=== PATIENT | male | born 1950 | race Caucasian/White ===

== ENCOUNTER → 2017-10-09 | Outpatient (CLI) | payer BC ==
[~2017-10-09] MED LIST: ASPI325; ASPI81EC PO; AZIT250 PO; BP MED; CLOP75; CRUTCH3 USE; HYDACE10B PO; HYDACE5 PO; HYDPAM50 PO; META800 PO; METO50; METO50ER PO; NAPR375; NAPR500 PO; NEOPOLHCSU OT; OSTEO BIFLEX; OXYACE5T PO; PRED20 PO; ROSU10TA PO; SILD50TA PO; SULTRIDS PO; TESTOSTERONE INJ; VALS80; VALS80 PO; VITS
== END ==
LOC: LAB 09:45
DX: E11.9 Type 2 diabetes mellitus without complications (principal)
CPT/HCPCS: 82043

== ENCOUNTER → 2018-10-31 | Outpatient (CLI) | payer OTHER ==
[2018-10-31 15:01] LABS: BASOPHILS ABSOLUTE AUTO 0.04 K/mm3 (0.00-0.23); BASOPHILS PERCENT AUTO 0 % (0-2); EOSINOPHILS ABSOLUTE AUTO 0.01 K/mm3 (0.00-0.68); EOSINOPHILS PERCENT AUTO 0 % (0-6); Hematocrit 51.3 % (37.0-53.0); Hemoglobin 17.3 g/dL (13.5-17.5); IMMATURE GRAN PERCENT AUTO 1 % (0-1); LYMPHOCYTES ABSOLUTE AUTO 2.13 K/mm3 (0.84-5.20); LYMPHOCYTES PERCENT AUTO 11 % (21-46); MONOCYTES PERCENT AUTO 9 % (4-13); Mean Corpuscular HGB 30.7 pg (26.0-34.0); Mean Corpuscular HGB Conc 33.7 g/dL (31.5-36.5); Mean Corpuscular Volume 91 fL (80-100); Mean Platelet Volume 10.7 fL (9.1-12.4); NEUTROPHILS PERCENT AUTO 79 % (41-73); Platelet Count 158 K/mm3 (150-400); RDW Coefficient Variation 13.3 % (11.7-14.2); RDW Standard Deviation 44.9 fL (35.1-46.3); Red Blood Cell Count 5.63 M/mm3 (4.30-5.90); White Blood Cell Count 20.18 K/mm3 (4.00-11.30)
[2018-10-31 15:11] LABS: Alanine Aminotransfer (ALT/SGP 31 U/L (12-78); Albumin/Globulin Ratio 0.9 (0.8-1.8); Alk Phos 57 U/L (50-136); Anion Gap 7 mmol/L (6-16); Aspartate Aminotrans (AST/SGOT 7 U/L (12-37); Bilirubin, Total 1.5 mg/dL (0.1-1.0); Blood Urea Nitrogen 13 mg/dL (8-24); Bun/Creatinine Ratio 11.9 (12.0-20.0); CO2, Blood 28 mmol/L (21-32); Calcium, Blood 9.4 mg/dL (8.5-10.1); Chloride, Blood 100 mmol/L (98-108); Creatinine, Blood 1.09 mg/dL (0.60-1.20); Globulin, Blood 4.4 g/dL (2.2-4.0); Glomerular Filtration Rate >60 (60-); Glucose, Blood 111 mg/dL (70-99); Potassium, Blood 4.2 mmol/L (3.5-5.5); Sodium, Blood 135 mmol/L (136-145); Total Protein, Blood 8.4 g/dL (6.4-8.2)
== END ==
LOC: LAB 14:07 → LAB SHORT 14:07
PROVIDERS: Nurse Practitioner
DX: R06.02 Shortness of breath (principal)
CPT/HCPCS: 80053; 85025; 85379

== ENCOUNTER → 2022-05-12 | Outpatient (CLI) | payer OTHER | END | disposition home or self-care (01) | LOC: LAB SHORT 13:40 → LAB 13:40 | DX: L08.9 Local infection of the skin and subcutaneous tissue, unspecified (principal) | CPT/HCPCS: 87077; 87086; 87186 ==

== ENCOUNTER 2022-06-26 05:39 | Inpatient (IN) | payer OTHER ==
[~2022-06-26] VITALS: Ht 165.1 cm; Wt 110.5 kg
[2022-06-26] MEDS ORDERED: LOSA25 PO (06:05)
[2022-06-26] MEDS ORDERED: CARVEDILOL12.5 MG PO (06:05)
[2022-06-26] MEDS ORDERED: POT CHLORIDE (06:05)
[2022-06-26] MEDS ORDERED: FUROSEMIDE40 MG PO (06:05)
[2022-06-26 06:06] LABS: BASOPHILS ABSOLUTE AUTO 0.03 K/mm3 (0.00-0.23); BASOPHILS PERCENT AUTO 1 % (0-2); EOSINOPHILS ABSOLUTE AUTO 0.12 K/mm3 (0.00-0.68); EOSINOPHILS PERCENT AUTO 2 % (0-6); Hematocrit 45.5 % (37.0-53.0); Hemoglobin 15.9 g/dL (13.5-17.5); IMMATURE GRAN ABSOLUTE AUTO 0.02 K/mm3 (0.00-0.10); IMMATURE GRAN PERCENT AUTO 0 % (0-1); LYMPHOCYTES ABSOLUTE AUTO 1.51 K/mm3 (0.84-5.20); LYMPHOCYTES PERCENT AUTO 23 % (21-46); MONOCYTES ABSOLUTE AUTO 0.58 K/mm3 (0.16-1.47); MONOCYTES PERCENT AUTO 9 % (4-13); Mean Corpuscular HGB 30.2 pg (26.0-34.0); Mean Corpuscular HGB Conc 34.9 g/dL (31.5-36.5); Mean Corpuscular Volume 87 fL (80-100); Mean Platelet Volume 10.3 fL (9.1-12.4); NEUTROPHILS ABSOLUTE AUTO 4.32 K/mm3 (1.96-9.15); NEUTROPHILS PERCENT AUTO 66 % (41-73); Platelet Count 163 K/mm3 (150-400); RDW Coefficient Variation 12.5 % (11.7-14.2); RDW Standard Deviation 39.6 fL (35.1-46.3); Red Blood Cell Count 5.26 M/mm3 (4.30-5.90); White Blood Cell Count 6.58 K/mm3 (4.00-11.30)
[2022-06-26] MEDS ORDERED: METF500 PO (06:06)
[2022-06-26] MEDS ORDERED: TRAM50 PO (06:06)
[2022-06-26 06:32] LABS: Albumin/Globulin Ratio 1.1 (0.8-1.8); Bilirubin, Total 0.5 mg/dL (0.1-1.0); Bun/Creatinine Ratio 23.6 (12.0-20.0); Calcium, Blood 9.8 mg/dL (8.5-10.1); Creatinine, Blood 0.85 mg/dL (0.60-1.20); Globulin, Blood 3.6 g/dL (2.2-4.0); Potassium, Blood 4.6 mmol/L (3.5-5.5); Total Protein, Blood 7.6 g/dL (6.4-8.2)
[2022-06-26 07:52] LABS: Anti-Xa UFH, PHA Monitoring <0.10 IU/mL; International Normalized Ratio 0.98; Prothrombin Time Results 10.3 Sec (9.7-11.5)
--- NOTE | 2022-06-26 13:25 | NUR ---
1300 PATIENT ARRIVED FROM THE [facility] POST INTERVENTION VIA RIGHT RADIAL. PATIENT IN A RECLINER AND PLACED ON THE MONITOR. TR BAND IN PLACE TO THE RIGHT WRIST WITH 11 ML OF AIR IN PLACE FROM 1251. NO BLEEDING NOTED. NO TINGLING. PLETH GOOD WAVEFORM WITH SAT 97%. FAMILY AT THE BESIDE AFTER SPEAKING WITH DR. AYALA. PATIENT IS SLIGHTLY SOB BUT HE IS AN AORTIC VALVE PATIENT ALSO. NO CHEST PAIN NOTED FROM THE PATIENT. SBAR RECEIVED FROM TODD ROSE. PATIENT IS WAITING FOR BED PCU #[id number] TO BE CLEANED, HOLDING HERE IN [facility] TILL READY. DRINKING JUICE AND VISITING WITH FAMILY. CALL LIGHT IN REACH.
--- NOTE | 2022-06-26 13:51 | NUR ---
3550 PATIENT COMPLAINED OF HEADACHE AND RN OBTAINED ORDER FOR TYLENOL AND 650 MG PO TYLENOL GIVEN. FAMILY REMAINS AT THE BEDSIDE.
--- NOTE | 2022-06-26 14:01 | NUR ---
PATINET UP TO THE RESTRROM. SBAR GIVEN TO TODD LOPEZ IN PCU, AWAITING FOR ROOM TO BE CLEANED.
[2022-06-26] MEDS ORDERED: ATOR40TA PO (14:49)
[2022-06-26] MEDS ORDERED: GLIP10 PO (14:50)
[2022-06-26] MEDS ORDERED: KLOR-CON M1010 MEQ PO (14:52)
--- NOTE | 2022-06-26 19:15 | NUR ---
ASSUMED CARE BEDSIDE REPORT RECEIVED. RIGHT RADIAL ACCESS SITE REVIEWED WITH OFFGOING RN. PT DENIES CP/PRESSURE, DENIES SOB/DYSPNEA, DENIES NEEDS AT THIS TIME. CALL LIGHT IN REACH.
--- NOTE | 2022-06-27 01:39 | NUR ---
SOB ON ARRIVAL TO ROOM FOR ROUNDS, PT APPEARS UNCOMFORTABLE, NOTED SITTING ON EDGE OF BED INTERMITTENTLY TAKES DEEPER BREATHS. HE ADMITS TO EPISODES OF FEELING SHORT OF BREATH THAT LAST "5 OR 6 SECONDS." "LIKE I JUST CAN'T CATCH MY BREATH" HE DENIES CP/PRESSURE, STATES THAT CPAP USE IMPROVES FEELING OF SHORTNESS OF BREATH. HE DOES STATE THAT HE HAS THESE EPISODES AT HOME WELL. PT DENIES SIMILARITIES WITH CARDIAC PAIN/DISCOMFORT. CONTINUES IN SINUS RHYTHM WITH RATE MID 60S, SATS MAINTAINING, LUNG SOUNDS CLEAR WITH DIM BASES BILAT, RESP RATE 20-22. PT DENIES NEED FOR INTERVENTION AT THIS TIME. WILL CONT TO MONITOR AND OBTAIN EKG IF SHORTNESS OF BREATH PERSISTS.
--- NOTE | 2022-06-27 02:01 | NUR ---
SHORTNESS OF BREATH PT STATES THAT HE IS FEELING BETTER AT THIS TIME, HE IS GOING TO ATTEMPT TO SLEEP. WILL MONITOR.
--- NOTE | 2022-06-27 05:39 | NUR ---
PT REMAINS ALERT AND ORIENTED THROUGHOUT NOC, CONTINUES TO DENY CHEST PAIN, DID ADMIT TO SOME SHORTNESS OF BREATH EARLY THIS AM, SEE NN FOR ONSET AND RESOLUTION TIMES. HE IS UP TO BATHROOM AND CHAIR IN ROOM WITH STEADY GAIT AND SBA FOR LINE MANAGEMENT. GOOD COMPLIANCE WITH RIGHT RADIAL ACCESS MOVEMENT RESTRICTIONS HAS BEEN NOTED THROUGHOUT NOC. CONTINUES IN SINUS RHYTHM, OCCASIONAL PVCS HAVE BEEN NOTED, PRESSURES MAINTAIN. LUNGS REMAIN CLEAR THROUGHOUT, SATS MAINTAIN ON ROOM AIR WHEN AWAKE, RT DID SET UP CPAP WITH 2 L/MIN BLEED IN. RIGHT RADIAL ACCESS SITE CONTINUES WNL, NO BLEEDING OR BRUISING NOTED. WILL CONT TO MONITOR AND REPORT TO ONCOMING SHIFT.
[2022-06-27 05:50] LABS: BASOPHILS ABSOLUTE AUTO 0.05 K/mm3 (0.00-0.23); BASOPHILS PERCENT AUTO 1 % (0-2); EOSINOPHILS ABSOLUTE AUTO 0.15 K/mm3 (0.00-0.68); EOSINOPHILS PERCENT AUTO 2 % (0-6); Hematocrit 46.3 % (37.0-53.0); IMMATURE GRAN ABSOLUTE AUTO 0.03 K/mm3 (0.00-0.10); IMMATURE GRAN PERCENT AUTO 0 % (0-1); LYMPHOCYTES ABSOLUTE AUTO 1.58 K/mm3 (0.84-5.20); LYMPHOCYTES PERCENT AUTO 19 % (21-46); MONOCYTES ABSOLUTE AUTO 0.66 K/mm3 (0.16-1.47); MONOCYTES PERCENT AUTO 8 % (4-13); Mean Corpuscular HGB 30.2 pg (26.0-34.0); Mean Corpuscular HGB Conc 34.6 g/dL (31.5-36.5); Mean Corpuscular Volume 87 fL (80-100); Mean Platelet Volume 10.3 fL (9.1-12.4); NEUTROPHILS ABSOLUTE AUTO 6.08 K/mm3 (1.96-9.15); NEUTROPHILS PERCENT AUTO 71 % (41-73); Platelet Count 177 K/mm3 (150-400); RDW Coefficient Variation 12.9 % (11.7-14.2); RDW Standard Deviation 40.8 fL (35.1-46.3); White Blood Cell Count 8.55 K/mm3 (4.00-11.30)
[2022-06-27 06:16] LABS: Anion Gap 5 mmol/L (6-16); Blood Urea Nitrogen 18 mg/dL (8-24); CHOL/HDL RATIO 3.8; CO2, Blood 28 mmol/L (21-32); Calcium, Blood 9.6 mg/dL (8.5-10.1); Chloride, Blood 105 mmol/L (98-108); Cholesterol 130 mg/dL (50-200); Creatinine, Blood 0.82 mg/dL (0.60-1.20); Glomerular Filtration Rate 94 (60-); Glucose, Blood 174 mg/dL (70-99); HDL Cholesterol 34 mg/dL (>39); LDL/HDL RATIO 0.9; Low Density Lipoprotein Chol 31 mg/dL (0-110); Potassium, Blood 4.5 mmol/L (3.5-5.5); Sodium, Blood 138 mmol/L (136-145); Triglycerides 326 mg/dL (30-160); Very Low Density Lipoprot Chol 65 mg/dL (6-32)
[2022-06-27] MEDS ORDERED: ASPI81CH PO (09:25)
[2022-06-27] MEDS ORDERED: TICA90TA PO (09:25)
--- NOTE | 2022-06-27 11:01 | NUR ---
DISCHARGE SUMMARY PT WAS TRANSPORTED BY WHEELCHAIR TO PERSONAL VEHICLE. ALL PERSONAL BELONGINGS AND DISCHARGE INSTRUCTIONS WERE IN THE PT'S POSSESSION AT THE TIME OF DISCHARGE. ALL QUESTIONS AND CONCERNS WERE ADDRESSED PRIOR TO DISCHARGE AND PT STATED AN UNDERSTANDING OF DISCHARGE INSTRUCTIONS.
== END 2022-06-27 10:53 | disposition home or self-care (01) | DRG 246 ==
LOC: ER 05:39 → ERHOLD 08:14 → PCU 08:14
PROVIDERS: Student in an Organized Health Care Education/Training Program; ADMIT Student in an Organized Health Care Education/Training Program
PROC: 4A023N7 Measurement of Cardiac Sampling and Pressure, Left Heart, Percutaneous Approach (ICD-10-PCS; principal; 2022-06-26)
PROC: 027034Z Dilation of Coronary Artery, One Artery with Drug-eluting Intraluminal Device, Percutaneous Approach (ICD-10-PCS; 2022-06-26)
PROC: B2111ZZ Fluoroscopy of Multiple Coronary Arteries using Low Osmolar Contrast (ICD-10-PCS; 2022-06-26)
PROC: B240ZZ3 Ultrasonography of Single Coronary Artery, Intravascular (ICD-10-PCS; 2022-06-26)
DX: T82.855A Stenosis of coronary artery stent, initial encounter (principal); I21.A9 Other myocardial infarction type; Z68.41 Body mass index [BMI] 40.0-44.9, adult; I25.10 Atherosclerotic heart disease of native coronary artery without angina pectoris; Z88.0 Allergy status to penicillin; Z79.899 Other long term (current) drug therapy; E66.9 Obesity, unspecified; G47.33 Obstructive sleep apnea (adult) (pediatric); I12.9 Hypertensive chronic kidney disease with stage 1 through stage 4 chronic kidney disease, or unspecified chronic kidney disease; E11.22 Type 2 diabetes mellitus with diabetic chronic kidney disease; N18.9 Chronic kidney disease, unspecified; E78.5 Hyperlipidemia, unspecified; Z79.84 Long term (current) use of oral hypoglycemic drugs; E11.65 Type 2 diabetes mellitus with hyperglycemia; Z28.29 Immunization not carried out because of patient decision for other reason
CPT/HCPCS: 36415; 71045; 76937; 80048; 80053; 80061; 82947; 83690; 83735; 83880; 84443; 84484; 85025; 85347; 85520; 85610; 92978; 93005; 93010; 93454; 94660; 94762; 99152; 99153; A9270; C1725; C1753; C1769; C1874; C1887; C1894; C8929; C9600; J1644; J2250; J3010; J7030; J7050; Q9957; Q9967

== ENCOUNTER → 2022-07-19 | Outpatient (CLI) | payer OTHER ==
[~2022-07-19] MED LIST changes: +ASPI81CH PO; +ATOR40TA PO; +CARVEDILOL12.5 MG PO; +FUROSEMIDE40 MG PO; +GLIP10 PO; +KLOR-CON M1010 MEQ PO; +LOSA25 PO; +METF500 PO; +POT CHLORIDE; +TICA90TA PO; +TRAM50 PO
[2022-07-19 11:32] LABS: Source, Urine Clean Catch
[2022-07-19 18:56] LABS: Appearance, Urine Clear (Clear); Bilirubin, Urine Neg (Neg); Blood, Urine Neg (Neg); Color, Urine Yellow (P-Yellow); Glucose Qualitative, Urine Neg (Neg); Ketones, Urine Neg (Neg); Leukocyte Esterase, Urine Neg (Neg); Nitrite, Urine Pos (Neg); Protein, Urine 1+ (Neg); Urobilinogen, Urine NORM (Normal); pH, Urine 6.5 (5.0-8.0)
[2022-07-19 19:04] LABS: Bacteria Many /hpf; Red Blood Cells, Urine 0-2 /hpf (0-2); Squamous Epithelial Cells Few /hpf (Few)
== END | disposition home or self-care (01) ==
LOC: LAB SHORT 10:14 → LAB 10:14
PROVIDERS: Registered Nurse
DX: R30.0 Dysuria (principal)
CPT/HCPCS: 81001; 87077; 87086; 87186

== ENCOUNTER → 2024-01-09 | Outpatient (CLI) | payer OTHER ==
[2024-01-09 12:20] LABS: Alanine Aminotransfer (ALT/SGP 58 U/L (12-78); Albumin, Blood 3.6 g/dL (3.4-5.0); Alk Phos 56 U/L (40-126); Anion Gap 11 mmol/L (6-16); Aspartate Aminotrans (AST/SGOT 26 U/L (12-37); Bilirubin, Total 0.7 mg/dL (0.1-1.0); Blood Urea Nitrogen 13 mg/dL (8-24); Bun/Creatinine Ratio 10.9 (12.0-20.0); CHOL/HDL RATIO 2.8; CO2, Blood 28 mmol/L (21-32); Calcium, Blood 9.1 mg/dL (8.5-10.1); Chloride, Blood 101 mmol/L (98-108); Cholesterol 92 mg/dL (50-200); Creatinine, Blood 1.19 mg/dL (0.60-1.20); Globulin, Blood 3.7 g/dL (2.2-4.0); Glomerular Filtration Rate 65 (60-); Glucose, Blood 99 mg/dL (70-99); HDL Cholesterol 33 mg/dL (>39); LDL/HDL RATIO 1.2; Low Density Lipoprotein Chol 38 mg/dL (<110); Potassium, Blood 4.4 mmol/L (3.5-5.5); Sodium, Blood 136 mmol/L (136-145); Total Protein, Blood 7.3 g/dL (6.4-8.2); Triglycerides 104 mg/dL (30-160); Very Low Density Lipoprot Chol 20 mg/dL (6-32)
[2024-01-09 12:23] LABS: BASOPHILS ABSOLUTE AUTO 0.05 K/mm3 (0.00-0.23); BASOPHILS PERCENT AUTO 1 % (0-2); EOSINOPHILS PERCENT AUTO 3 % (0-6); Hematocrit 50.7 % (37.0-53.0); Hemoglobin 17.1 g/dL (13.5-17.5); IMMATURE GRAN ABSOLUTE AUTO 0.02 K/mm3 (0.00-0.10); IMMATURE GRAN PERCENT AUTO 0 % (0-1); LYMPHOCYTES ABSOLUTE AUTO 1.86 K/mm3 (0.84-5.20); LYMPHOCYTES PERCENT AUTO 26 % (21-46); MONOCYTES ABSOLUTE AUTO 0.65 K/mm3 (0.16-1.47); MONOCYTES PERCENT AUTO 9 % (4-13); Mean Corpuscular HGB 29.8 pg (26.0-34.0); Mean Corpuscular HGB Conc 33.7 g/dL (31.5-36.5); Mean Corpuscular Volume 88 fL (80-100); Mean Platelet Volume 10.5 fL (9.1-12.4); NEUTROPHILS ABSOLUTE AUTO 4.44 K/mm3 (1.96-9.15); NEUTROPHILS PERCENT AUTO 61 % (41-73); Platelet Count 145 K/mm3 (150-400); RDW Coefficient Variation 12.9 % (11.7-14.2); RDW Standard Deviation 41.6 fL (35.1-46.3); Red Blood Cell Count 5.74 M/mm3 (4.30-5.90); White Blood Cell Count 7.22 K/mm3 (4.00-11.30)
== END ==
LOC: LAB SHORT 11:12 → LAB 11:12
PROVIDERS: Registered Nurse
DX: E11.51 Type 2 diabetes mellitus with diabetic peripheral angiopathy without gangrene (principal); E11.21 Type 2 diabetes mellitus with diabetic nephropathy; E11.65 Type 2 diabetes mellitus with hyperglycemia; E29.1 Testicular hypofunction; I12.9 Hypertensive chronic kidney disease with stage 1 through stage 4 chronic kidney disease, or unspecified chronic kidney disease; E11.22 Type 2 diabetes mellitus with diabetic chronic kidney disease; N18.31 Chronic kidney disease, stage 3a; I25.10 Atherosclerotic heart disease of native coronary artery without angina pectoris
CPT/HCPCS: 36415; 80053; 80061; 83036; 84403; 85025

== ENCOUNTER → 2024-04-20 | Outpatient (CLI) | payer OTHER ==
[2024-04-24 15:24] LABS: TESTOSTERONE, FREE BY DIALYSIS 123.4 pg/mL (47.0-244.0); TESTOSTERONE, TOTAL MASS SPEC 473.7 ng/dL (300.0-720.0)
== END ==
LOC: LAB 08:15 → LAB SHORT 08:15
PROVIDERS: Nurse Practitioner Family
DX: E11.21 Type 2 diabetes mellitus with diabetic nephropathy (principal); E11.51 Type 2 diabetes mellitus with diabetic peripheral angiopathy without gangrene; E11.65 Type 2 diabetes mellitus with hyperglycemia; N52.9 Male erectile dysfunction, unspecified
CPT/HCPCS: 83036; 84402; 84403

== ENCOUNTER → 2024-07-10 | Outpatient (CLI) | payer OTHER | LOC: LAB SHORT 16:21 → LAB 16:21 | DX: R30.9 Painful micturition, unspecified (principal) | CPT/HCPCS: 87077; 87086; 87186 ==

== ENCOUNTER → 2024-07-20 | Outpatient (CLI) | payer OTHER ==
[2024-07-24 21:55] LABS: TESTOSTERONE, FREE BY DIALYSIS 22.2 pg/mL (47.0-244.0); TESTOSTERONE, TOTAL MASS SPEC 64.3 ng/dL (300.0-720.0)
== END | disposition home or self-care (01) ==
LOC: LAB 10:53 → LAB SHORT 10:53
PROVIDERS: Nurse Practitioner Family
DX: E11.21 Type 2 diabetes mellitus with diabetic nephropathy (principal); E11.51 Type 2 diabetes mellitus with diabetic peripheral angiopathy without gangrene; E11.65 Type 2 diabetes mellitus with hyperglycemia; E29.1 Testicular hypofunction
CPT/HCPCS: 83036; 84402; 84403

== ENCOUNTER → 2024-08-14 | Outpatient (CLI) | payer OTHER ==
[2024-08-14 15:19] LABS: Source, Urine Voided
[2024-08-14 16:07] LABS: Appearance, Urine Clear (Clear); Bilirubin, Urine Neg (Neg); Blood, Urine Neg (Neg); Color, Urine Yellow (P-Yellow); Glucose Qualitative, Urine Neg (Neg); Ketones, Urine Neg (Neg); Leukocyte Esterase, Urine Neg (Neg); Nitrite, Urine Neg (Neg); Protein, Urine 3+ (Neg); Urobilinogen, Urine NORM (Normal)
[2024-08-14 16:14] LABS: Bacteria Rare /hpf; Red Blood Cells, Urine 0-2 /hpf (0-2); Squamous Epithelial Cells Few /hpf (Few)
== END | disposition home or self-care (01) ==
LOC: LAB 15:17 → LAB SHORT 15:17 → LAB FUT 08-14 13:20
PROVIDERS: Family Medicine
DX: N39.0 Urinary tract infection, site not specified (principal)
CPT/HCPCS: 81001

== ENCOUNTER → 2025-03-16 | Outpatient (CLI) | payer OTHER | LOC: LAB SHORT 15:01 → LAB 15:01 | DX: R30.9 Painful micturition, unspecified (principal) | CPT/HCPCS: 87086 ==